=== PATIENT | female | born 2005 | race African-American/Black ===

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

== ENCOUNTER 2025-02-21 12:53 | Outpatient (CLI) | payer OTHER, SELFPAY ==
--- NOTE | ~2025-02-21 | US_ITS ---
EXAMINATION: US breast LT limited INDICATION: 19-year old female; presents for evaluation of Palpable lump in the left breast ongoing f or one month. COMPARISON: None TECHNIQUE: Targeted sonographic evaluation of the palpable area identified by the patient in the LEFT breast was completed. FINDINGS: A 2 x 1.5 x 0.9 cm circumscribed hypoechoic mass at 12:30 location 9 cm from the nipple in the LEFT b reast correlates to the area of palpable lump. IMPRESSION: Probably benign LEFT breast mass. RECOMMENDATION: 6 MONTH FOLLOW-UP LEFT BREAST ULTRASOUND. BI-RADS 3, PROBABLY BENIGN Reviewed, dictated and finalized at location B.
--- OUTSIDE RECORDS SUMMARY | 2025-02-21 12:57 | XMS_ITS | Clinical Summary ---
Author Organization [facility] Address [address] [place] [address] Care Team Providers Care Frog Shaker Name Role Phone Unavailable Primary Care Provider Unavailabl e Social History Tobacco Use Types Packs/Day Years Used Date Smoking Tobacco: Never Assessed Comments Unknown Sex and Gender Information Value Date Recorded Sex Assigned at Not on file Legal Sex Female 9:19 AM JOB [employer]PER[employer] Gender Identity Not on file Sexual Orientation Not on file Plan of Treatment Health Maintenance Due Date Last Done Comments Hepatitis C Virus (HCV) Screening 2004 TdaP Immunization 2004 Human Papillomavirus (HPV) Immunization (1 - 3-dose series) 2019 Meningococcal B Immunization (1 of 2 - Standard) 2020 Hepatitis B Immunization (1 of 3 - 19+ 3-dose series) 2023 SARS-COV-2 Immunization ( - season) 2024 Influenza Immunization (#1) 2025 Respiratory Syncytial Virus (RSV) Immunization (Adult) (1 - 1-dose 75+ series) 2079 Meningococcal Immunization (ACWY) Aged Out No longer eligible based on patient's age to complete this topic Pneumococcal Immunization Combined Aged Out No longer eligible based on patient's age to complete this topic Rotavirus Immunization Aged Out No lo nger eligible based on patient's age to complete this topic
== END 2025-02-21 12:54 | disposition home or self-care (01) ==
LOC: ANHIMG 12:54
PROVIDERS: PCP Obstetrics & Gynecology; Visit Provider Student in an Organized Health Care Education/Training Program
DX: N63.0 Unspecified lump in unspecified breast (principal); R92.8 Other abnormal and inconclusive findings on diagnostic imaging of breast
CPT/HCPCS: 76642